=== PATIENT | male | born 1960 | race Caucasian/White ===

== ENCOUNTER 2025-06-02 12:18 | Outpatient (CLI) | payer MEDICARE, BC ==
--- NOTE | 2025-06-02 16:05 | RADIOLOGY REPORT ---
Technique: Real-time ultrasound imaging of the right inguinal region Comparison: None Findings: Sonographic images of the right inguinal region of interest were obtained. There is a hernia containi ng fat appears reducible. The neck of the hernia measures 2.9 cm. The hernia measures at least 2.9 x 2.0 cm. Impression: As above
== END 2025-06-02 23:59 | disposition home or self-care (01) ==
LOC: US 12:18
PROVIDERS: ATTEND Family Medicine
DX: K40.90 Unilateral inguinal hernia, without obstruction or gangrene, not specified as recurrent (principal)
CPT/HCPCS: 76705

== ENCOUNTER 2025-08-04 06:39 | Day surgery (SDC) | payer MEDICARE, BC ==
--- NOTE | 2025-07-28 10:48 | ELECTROCARDIOGRAPH REPORT ---
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 WALLY Sethi Measurements Intervals [place] Rate: 51 P: 47 VT: 161 QRS: 10 QRSD: 102 T: 36 QT: 405 QTc: 373 Interpretive Statements Sinus bradycardia Abnormal R-wave progression, early transition Electronically Signed On 07-28-2025 20:36:[address] WALLY Sethi Please click the below link to view image of tracing.
[2025-07-28 10:55] LABS: MEAN PLATELET VOLUME 7.8 FL (7.4-10.4); PRE OP HEMATOCRIT 41.9 % (42.0-52.0); PRE OP HEMOGLOBIN 14.5 g/dL (14.0-17.9); PRE OP PLATELET COUNT 202 X10'3 (140-440); PRE OP WHITE BLOOD COUNT 5.1 10'3 (4.8-10.8); RED CELL DISTRIBUTION WIDTH 12.9 % (11.5-14.5)
[2025-07-28 11:15] LABS: CREATININE 1.02 MG/DL (0.60-1.10); PRE OP ALT 27 U/L (30-65); PRE OP ANION GAP 6 (8-16); PRE OP AST 19 U/L (10-37); PRE OP BILIRUB, TOTAL 0.8 MG/DL (0.0-1.0); PRE OP GLUCOSE 89 MG/DL (70-104); PRE OP POTASSIUM 4.3 MMOL/L (3.4-5.1); PRE OP SODIUM 137 MMOL/L (135-145); TOTAL CARBON DIOXIDE 27.7 MMOL/L (24-32); eGFR 73 ML/MIN
[2025-08-04] VITALS (16 sets, daily range): BP systolic 100–139; BP diastolic 53–89; PULSE 52–81; RESP 12–16; TEMP 97.2; O2SAT 93–99
[~2025-08-04] VITALS: Ht 180.3 cm; Wt 97.5 kg
[~2025-08-04 06:39] MED LIST: ATOR40TA72 PO; OMEP40CA21 PO
[2025-08-04] MEDS: ceFAZolin 2gm/dext,iso 50mL 50 ML IV ONE (07:33)
[2025-08-04] MEDS: ringers solution, lacted 1,000 ML IV SCH (07:33)
[2025-08-04] MEDS ORDERED: labetalol 20mg/4ml (5mg/ml) syringe IV PRN (08:15)
[2025-08-04] MEDS ORDERED: morphine 4 MG/ML inj SYRINge IV PRN (08:15)
[2025-08-04] MEDS ORDERED: enalaprilat 1.25mg/ml 2ml vial IV PRN (08:15)
[2025-08-04] MEDS ORDERED: HYDROmorphone/PF 0.2 MG/ML SYRINGE IV PRN ×2 (08:15)
[2025-08-04] MEDS ORDERED: ringers solution, lacted 1,000 ML IV SCH (08:15)
[2025-08-04] MEDS ORDERED: fentaNYL/PF 50MCG/1 ML 2ML syringe IV PRN ×2 (08:15)
[2025-08-04] MEDS ORDERED: BUPIVAcaine 2.5mg/ml inj 50ml vial (contains preservative) ONE (09:17)
[2025-08-04] MEDS ORDERED: LIDOcaine 1% 30ml preserv. free vial ONE (09:17)
[2025-08-04] MEDS ORDERED: dexamethasone sod phosphate 4mg/ml inj. ONE (09:30)
[2025-08-04] MEDS ORDERED: glycopyrrolate 0.2mg/ml inj ONE (09:30)
[2025-08-04] MEDS ORDERED: fentaNYL/PF 50MCG/1 ML 2ML syringe ONE (09:32)
[2025-08-04] MEDS ORDERED: midazolam 1 mg/ML 2ml injection ONE (09:32)
[2025-08-04] MEDS ORDERED: rocuronium 10mg/ml inj IV ONE (09:38)
[2025-08-04] MEDS ORDERED: LIDOcaine 1%/PF 5ML 10 MG/ML VIAL ONE (09:39)
[2025-08-04] MEDS ORDERED: ondansetron/PF 4mg/2ml inj ONE (09:39)
[2025-08-04] MEDS ORDERED: propofol inj 20 ML IV ONE (09:39)
--- NOTE | 2025-08-04 09:42 | HISTORY AND PHYSICAL ---
History & Physical Providers to CC CC: KENY PRECIADO MD ~ History of Present Illness Reason for Admit\Complaint: Recurrent right inguinal hernia History of Present Illness Patient had bilateral inguinal hernias repaired when he was 16 years old he has developed a recurrent right inguinal hernia This is an interval history and physical exam He was seen in the office greater than 30 days ago He denies any change in his past medical history since he was seen in the office (please see previous history and physical exam for all pertinent details) He is scheduled for robotic assisted, laparoscopic recurrent right inguinal hernia repair with mesh Allergies: Coded Allergies: No Known Allergies (Unverified , 08/03/25) Home Medications Home Medications Active Reported Atorvastatin Calcium 40 Mg Tablet 1 Tab PO DAILY Prilosec (Omeprazole) 40 Mg Capsule 1 Cap PO BID ROS ROS Reviewed and negative Exam Vitals: Vital Signs Date Time Temp Pulse Resp B/P (MAP) Pulse Ox O2 Delivery O2 Flow Rate FiO2 08/04/25 07:32 52 16 96 08/04/25 06:51 Room Air General: 65-year-old male in no acute distress Chest: Lungs clear to auscultation bilaterally Cardiovascular: Regular rate and rhythm without murmurs Abdomen: Soft and nondistended Right inguinal hernia, right side marked with permanent marker Problems: (1) Recurrent right inguinal hernia Assessment & Plan: The risks, benefits, and alternatives to a robotic assisted, laparoscopic recurrent right inguinal hernia repair with mesh were discussed with the patient. Risks include, but are not limited to, bleeding, infection, injury to intra-abdominal structure, hernia recurrence and chronic postoperative pain. Patient verbalized understanding and wishes to proceed with surgery. We will do so today as scheduled KENY PRECIADO MD Aug 04, 2025 09:42
[2025-08-04] MEDS: BUPIVAcaine/PF 2.5 mg/ml (0.25%) 30ml vial IJ ONE (10:15)
[2025-08-04] MEDS: LIDOcaine 1% 30ml preserv. free vial IJ ONE (10:16)
[2025-08-04] MEDS ORDERED: morphine 4 MG/ML inj SYRINge ONE (10:35)
[2025-08-04] MEDS ORDERED: acetaminophen 1,000mg/100ml IV 100 ML IV ONE (11:03)
--- NOTE | 2025-08-04 11:31 | OPERATIVE REPORT ---
Operative Report Providers to CC CC: JAIRO PRECIADO MD ~ Date of Procedure: Aug 04, 2025 Pre-Operative Diagnosis: Recurrent right inguinal hernia Post-Operative Diagnosis Recurrent right inguinal hernia Recurrent left inguinal hernia Procedure Performed Robotic assisted, laparoscopic recurrent right inguinal hernia repair with mesh Robotic assisted, laparoscopic recurrent left inguinal hernia repair with mesh Surgeon: Jairo Preciado MD FACS Oncology Radiation Physician None Anesthesiologist: Rafael Gonzalez Type of Anesthesia: General Findings: Bilateral indirect inguinal hernias right> left Evidence of previous bilateral inguinal hernia repair Wound class I Complications None Prosthetics\Implants used: Bilateral large Dextile mesh Estimated Blood Loss: Minimal Specimen Removed: None Description of Procedure: Patient was brought to the operating room and identified by the nursing staff and the attending physician. Patient was placed supine and general anesthesia was induced. The patient's abdomen was prepped and draped in the standard sterile fashion. Preoperative antibiotics were given. Supraumbilical, midline incision was made to accommodate a 12 mm Izaguirre port. Izaguirre technique was used to gain access into the abdomen and the port was anchored to the fascia with 0 Vicryl suture. Abdomen was insufflated without incident. Laparoscope was inserted and the pelvis examined. Patient was placed in Trendelenburg position. Secondary, 8.5 mm robotic trochars were then placed in the right lateral left lateral upper abdomen just above the umbilical line. These were placed under laparoscopic guidance. Local anesthetic was infiltrated prior to their insertion. The da Andreas robotic arm was docked to the patient. Instruments were guided intra-abdominally under laparoscopic visualization. Peritoneal rent was created starting at the left anterior superior iliac spine and carried across the anterior abdominal wall to the contralateral anterior superior iliac spine. The peritoneal flap was created and carried down to the symphysis pubis. Dissection was carried out bilaterally. At each of the internal rings, there was scarring and evidence of previous non mesh repair of inguinal hernias bilaterally. There were bilateral indirect inguinal hernias; right> left. These were both completely reduced including their contents which included preperitoneal fat on the left and a lipomatous fatty mass on the right. Peritoneum was dissected away from the cord structures and out laterally to accommodate 2 separate pieces of large Dextile mesh. Bilateral critical views of the myopectineal orifice were obtained. Mesh and suture was passed into the abdomen. Bilateral mesh was placed covering potential obturator, femoral, direct, and indirect hernia spaces. Mesh was anchored at William's ligament, rectus muscle in the midline, and out laterally just anterior to the anterior superior iliac spine. Mesh laid without wrinkles or folds. Peritoneal rent was then reapproximated with running, absorbable 2/0 V-lock suture. [place] were retrieved. Abdomen was allowed to desufflate after instruments removed and da Andreas robotic arm undocked from the patient. Umbilical port was removed as were the secondary trochars. The fascia at the umbilical port site was closed with 0 Vicryl sutures. Skin was closed at all sites with 4-0 Monocryl sutures in a subcuticular fashion. Sterile dressings were applied. Patient was awakened and taken to the postanesthesia care unit in stable condition. Counts repoted as correct: Yes JAIRO PRECIADO MD Aug 04, 2025 11:31
[2025-08-04] MEDS: ondansetron/PF 4mg/2ml inj IV PRN (12:31)
== END 2025-08-04 14:38 | disposition home or self-care (01) ==
LOC: PAS 06:39
PROVIDERS: ATTEND Surgery
DX: K40.21 Bilateral inguinal hernia, without obstruction or gangrene, recurrent (principal); R94.31 Abnormal electrocardiogram [ECG] [EKG]; E78.5 Hyperlipidemia, unspecified; K21.9 Gastro-esophageal reflux disease without esophagitis; J45.909 Unspecified asthma, uncomplicated; Z79.899 Other long term (current) drug therapy
CPT/HCPCS: 36415; 49651; 80053; 82948; 85025; 93005; A4215; A4618; C1781; J0131; J0780; J1100; J2003; J2250; J2270; J2405; J2704; J2710; J3010; J3490; J7030; J7120; Z7506; Z7508; Z7512; Z7610